=== PATIENT | female | born 1940 | race Caucasian/White ===

== ENCOUNTER 2016-08-19 07:07 | Day surgery (SDC) | payer MEDICARE ==
[~2016-08-19 07:07] MED LIST: Buffered Lidocaine 0.9% SYRIN* 5 ML/SYR SYRINGE INTRADERM ONE
[2016-08-19] MEDS ORDERED: Phenylephrine 2.5% OPTH.SOL* 2 ML BTL ONE (07:38)
[2016-08-19] MEDS ORDERED: acetaZOLAMIDE TAB* 250 MG ONE (07:38)
[2016-08-19] MEDS ORDERED: Lidocaine 1% MPF* 2 ML VIAL ONE (07:38)
[2016-08-19] MEDS ORDERED: Buffered Lidocaine 0.9% SYRIN* 5 ML/SYR SYRINGE ONE (07:38)
[2016-08-19] MEDS ORDERED: Flurbiprofen 0.03% OPTH.SOL* 2.5 ML BTL ONE (07:38)
[2016-08-19] MEDS ORDERED: Povidone Iodine 5% OPTH* 30 ML BTL ONE (07:38)
[2016-08-19] MEDS ORDERED: Cyclopentolate 1% OPTH.SOL* 2 ML BTL ONE (07:38)
[2016-08-19] MEDS ORDERED: Proparacaine 0.5% OPHTH.SOL* 15 ML BTL ONE (07:38)
[2016-08-19] MEDS ORDERED: Neomycin/Polymy/Dex OPTH.SUSP* MAXITROL 0.1% 5 ML ONE (07:38)
[2016-08-19] MEDS ORDERED: Lidocaine 1% MPF wEPI 200,000* 30 ML SDV ONE (07:38)
[2016-08-19] MEDS ORDERED: Propofol* 10 MG/ML 20 ML BTL IV PUSH ONE (09:20)
[2016-08-19] MEDS ORDERED: Lidocaine 2% PF * 5 ML VIAL ONE (09:20)
[2016-08-19 10:06] VITALS: BP 102/83
--- NOTE | 2016-08-19 11:11 | OP ---
DATE OF OPERATION: 08/19/2016 - [facility] DATE OF : 1940. SURGEON: Julián Kilgore M.D. PREOPERATIVE DIAGNOSIS: Cataract left eye. POSTOPERATIVE DIAGNOSIS: Cataract left eye. OPERATIVE PROCEDURE: Phacoemulsification left eye with IOL. DESCRIPTION OF PROCEDURE: The patient was brought to the operating room after being given 1/2% Alcaine with epinephrine drops in the preoperative area. The eye was prepped and draped in the usual sterile fashion. Sterile drape and eyelid speculum were placed. Again, topical 1/2% Alcaine with epinephrine was given. A paracentesis incision was made at the 3 o'clock position with the No.75 blade. Clear cornea incision 2.2 x 2.2-mm was created at the 6 o'clock position starting at the anterior limbus using the 2.2-mm keratome. The anterior chamber was irrigated with 0.4 mL of 1% non-preservative intracameral lidocaine and filled with DisCoVisc. A capsulorrhexis was completed using the cystotome and the Utrata forceps. Hydrodissection was performed with balanced salt solution. The lens nucleus was removed with the Phacoemulsification handpiece without incident. Cortex was removed with the irrigation-aspiration handpiece. The capsular bag was re-inflated using DisCoVisc and an SN60WF 28.5 implant was inserted with the shooter. The irrigation-aspiration handpiece was used to remove all residual DisCoVisc. The eye was refilled with balanced salt solution and the wound checked and found to be watertight. Topical Maxitrol drops were given. We were planning on doing an iStent. Two or three attempts were made to do the iStent, but there was too much patient movement and I was not able to safely place the stent. I decided to abort that portion of the procedure. [id number]/[facility] #: [id number] MTDD
== END 2016-08-19 10:06 | disposition home or self-care (01) ==
LOC: OREAST 07:07
PROVIDERS: ATTEND Specialist
DX: H25.13 Age-related nuclear cataract, bilateral (principal); H40.1131 Primary open-angle glaucoma, bilateral, mild stage; H53.022 Refractive amblyopia, left eye; H43.813 Vitreous degeneration, bilateral; I10 Essential (primary) hypertension; Z79.01 Long term (current) use of anticoagulants; I47.1 Supraventricular tachycardia
CPT/HCPCS: A9270-GY; J2001; J2704; V2632

== ENCOUNTER 2016-08-26 07:48 | Day surgery (SDC) | payer MEDICARE ==
[~2016-08-26 07:48] MED LIST changes: +Acetaminophen TAB* 325 MG PO PRN; -Buffered Lidocaine 0.9% SYRIN* 5 ML/SYR SYRINGE INTRADERM ONE
[2016-08-26] MEDS ORDERED: Proparacaine 0.5% OPHTH.SOL* 15 ML BTL ONE (08:12)
[2016-08-26] MEDS ORDERED: Povidone Iodine 5% OPTH* 30 ML BTL ONE (08:12)
[2016-08-26] MEDS ORDERED: Neomycin/Polymy/Dex OPTH.SUSP* MAXITROL 0.1% 5 ML ONE (08:12)
[2016-08-26] MEDS ORDERED: Lidocaine 1% MPF wEPI 200,000* 30 ML SDV ONE (08:12)
[2016-08-26] MEDS ORDERED: Buffered Lidocaine 0.9% SYRIN* 5 ML/SYR SYRINGE ONE (08:12)
[2016-08-26] MEDS ORDERED: Phenylephrine 2.5% OPTH.SOL* 2 ML BTL ONE (08:12)
[2016-08-26] MEDS ORDERED: Lidocaine 1% MPF* 2 ML VIAL ONE (08:12)
[2016-08-26] MEDS ORDERED: Flurbiprofen 0.03% OPTH.SOL* 2.5 ML BTL ONE (08:12)
[2016-08-26] MEDS ORDERED: Cyclopentolate 1% OPTH.SOL* 2 ML BTL ONE (08:12)
[2016-08-26] MEDS ORDERED: acetaZOLAMIDE TAB* 250 MG ONE (08:12)
[2016-08-26] MEDS ORDERED: Midazolam* 1 MG/ML 5 ML VIAL (5 MG) ONE (09:31)
[2016-08-26] MEDS ORDERED: fentaNYL* 50 MCG/ML 2 ML VIAL (100 MCG VIAL) ONE (09:55)
[2016-08-26] MEDS ORDERED: Midazolam* 1 MG/ML 2 ML VIAL (2 MG) ONE (09:57)
[2016-08-26 10:36] VITALS: BP 100/43
[2016-08-26] MEDS ORDERED: Buffered Lidocaine 0.9% SYRIN* 5 ML/SYR SYRINGE INTRADERM ONE (12:35)
--- NOTE | 2016-08-26 13:02 | OP ---
DATE OF OPERATION: 08/26/16 - [facility] DATE OF : [birth year] SURGEON: Julián Kilgore M.D. PREOPERATIVE DIAGNOSIS: Cataract right eye. POSTOPERATIVE DIAGNOSIS: Cataract right eye. OPERATIVE PROCEDURE: Phacoemulsification right eye with IOL. DESCRIPTION OF PROCEDURE: The patient was brought to the operating room after being given 1/2% Alcaine with epinephrine drops in the preoperative area. The eye was prepped and draped in the usual sterile fashion. Sterile drape and eyelid speculum were placed. Again, topical 1/2% Alcaine with epinephrine was given. A paracentesis incision was made at the 9 o'clock position with the No.75 blade. Clear cornea incision 2.2 x 2.2-mm was created at the 12 o'clock position starting at the anterior limbus using the 2.2-mm keratome. The anterior chamber was irrigated with 0.4 mL of 1% non-preservative intracameral lidocaine and filled with DisCoVisc. A capsulorrhexis was completed using the cystotome and the Utrata forceps. Hydrodissection was performed with balanced salt solution. The lens nucleus was removed with the Phacoemulsification handpiece without incident. Cortex was removed with the irrigation-aspiration handpiece. The capsular bag was re-inflated using DisCoVisc and an SN60WF 25 was inserted with the shooter. The irrigation-aspiration handpiece was used to remove all residual DisCoVisc. The eye was refilled with balanced salt solution and the wound checked and found to be watertight. Topical Maxitrol drops were given. [id number]/[facility] #: [id number] [facility]
== END 2016-08-26 10:58 | disposition home or self-care (01) ==
LOC: OREAST 07:48
PROVIDERS: ATTEND Specialist
DX: H25.11 Age-related nuclear cataract, right eye (principal); H40.1130 Primary open-angle glaucoma, bilateral, stage unspecified; I10 Essential (primary) hypertension; I47.1 Supraventricular tachycardia; Z79.01 Long term (current) use of anticoagulants
CPT/HCPCS: A9270-GY; J2001; J2250; J3010; V2632

== ENCOUNTER 2019-02-17 15:14 | Emergency (ER) | payer MEDICARE ==
--- OUTSIDE RECORDS SUMMARY | 2019-02-17 15:29 | XMS REPORT | Continuity of Care Document ---
:1940 External Reference #:[id number] Author Name Jericho Alonzo M.D. (transmitted by agent of provider Sabrina Carbajal ) Address [address] [place] [id number] Care Team Providers Name Role Phone Rafita Bourgeois MD - Family Medicine Care Team Information Supervisor Cloth Winding [phone] Problems Active Problems Provider Date Palpitations Jericho Alonzo M.D. Onset: 10/26/2012 Mitral valve disorder Jericho Alonzo M.D. Onset: 10/26/2012 Pure hypercholesterolemia Jericho Alonzo M.D. Onset: 10/26/2012 Supraventricular premature beats Jericho Alonzo M.D. Onset: 10/26/2012 Difficulty breathing KRYSTEN Gill Onset: 05/11/2013 Electrocardiogram abnormal KRYSTEN Gill Onset: 05/11/2013 Hypoxemia KRYSTEN Gill Onset: 05/11/2013 Essential hypertension Jericho Alonzo M.D. Onset: 07/12/2013 Paroxysmal supraventricular tachycardia Jericho Alonzo M.D. Onset: 07/12 Social History Type Date Description Comments Sex Unknown Tobacco Use Start: Unknown Never Smoked Cigarettes ETOH Use Denies alcohol use Tobacco Use Start: Unknown Patient has never smoked Recreational Drug Use Denies Drug Use Smoking Status Reviewed: 12/21/18 Patient has never smoked Enjoy Exercising Does not enjoy exercising Exercise Type/Frequency Exercises rarely Allergies, Adverse Reactions, Alerts Description No Known Drug Allergies Medications Active Medications SIG Qnty Indications Ordering Provider Date Amlodipine Besylate 1 by mouth every 30tabs R03.0 Jericho Marie 12/21/2018 Buddy Alonzo 2.5mg Tablets Timolol Maleate one drop in each Unknown 01/11/2017 0.5% eye daily at night Solution Oxygen 2 l nc at bedtime 1units R09.02 Jericho Marie 07/01/2015 [facility] Buddy Alonzo Xarelto 1 by mouth every 90tabs Alesia Menezes, JACOB 06/11/2015 20mg Tablets day Klor-Con M20 2 tablet by mouth 60tabs Qutaybeh S. 08/03/2013 20Meq daily Buddy Allen Tablets ER Magnesium 1 by mouth every Unknown 400mg day Tablets Vitamin D (Vitamin D3) 25mcg Unknown (Cholecalciferol) (1000Iu) 1 po bid 1000Unit Tablets Alendronate Sodium 1 by mouth weekly Unknown 1 hour before 70mg Tablets breakfast with a full glass of water sitting up (Wednesday) Immunizations Description No Information Available Vital Signs Date Vital Result Comment 12/21/2018 10:32am Height 65 inches 5'5" Weight 156.38 lb with shoes Heart Rate 64 /min BP Systolic Sitting 190 mmHg Lue (Regular cuff) BP Diastolic Sitting 94 mmHg Lue (Regular cuff) BP Systolic Standing 190 mmHg BP Diastolic Standing 90 mmHg BP Systolic Lying Down 164 mmHg la repeat sitting BP Diastolic Lying Down 84 mmHg la repeat sitting BMI (Body Mass Index) 26.0 kg/m2 Ejection Fraction 60-65% Echocardiogram 06/02/2018 06/07/2018 12:44pm Height 65 inches 5'5" Weight 150.00 lb w/shoes Heart Rate 68 /min reg BP Systolic Sitting 128 mmHg Rue reg cuff BP Diastolic Sitting 80 mmHg Rue reg cuff BP Systolic Standing 122 mmHg Rue reg cuff BP Diastolic Standing 74 mmHg Rue reg cuff Respiratory Rate 15 /min BMI (Body Mass Index) 25.0 kg/m2 Results Description No Information Available Procedures Date Code Description Status 12/21/2018 70015 EKG Tracing & Interpretation Completed 03/15/2018 [id number] Mammogram Completed 08/14/2016 [id number] Diabetic Retinal Eye Exam Completed Medical Devices Description No Information Available Encounters Description No Information Available Assessments Date Code Description Provider 12/21/2018 I47.1 Supraventricular tachycardia Jericho Alonzo M.D. 12/21/2018 I34.0 Nonrheumatic mitral (valve) insufficiency Jericho Alonzo M.D. 12/21/2018 G47.33 Obstructive sleep apnea (adult) Jericho Alonzo M.D. (pediatric) 12/21/2018 I48.0 Paroxysmal atrial fibrillation Jericho Alonzo M.D. 12/21/2018 R06.00 Dyspnea, unspecified Jericho Alonzo M.D. 12/21/2018 R07.89 Chest discomfort Jericho Alonzo M.D. 12/21/2018 R03.0 Elevated blood-pressure reading without Jericho Alonzo M.D. diagnosis of hypertension Plan of Treatment Future Appointment(s):01/06/2019 9:00 am - Lyssa Nowak N.P. at [facility]01/16/2019 10:15 am - Jericho Alonzo M.D. at [facility]12/21/2018 - Jericho Alonzo M.D.I47.1 Supraventricular nrvfhgzgncfW32.0 Nonrheumatic mitral (valve) uwzmavzkddxkxY09.33 Obstructive sleep apnea (adult) (pediatric)I48.0 Paroxysmal atrial fxhesnevrwnqN35.00 Dyspnea, unspecifiedNew Orders:Lexiscan Nuclear Myoview, Scheduled: R07.89 Chest lfrmcbeiieE10.0 Elevated blood-pressure reading without diagnosis of hypertensionNew Medication:Amlodipine Besylate 2.5 mg - 1 by mouth every dayNew Orders:Ambulatory Blood Pressure Monitor, Scheduled: Follow up:rafi Omalley in 2 weeks' ov [facility] 8 m Functional Status Description No Information Available Mental Status Description No Information Available Referrals Description No Information Available
--- OUTSIDE RECORDS SUMMARY | 2019-02-17 15:29 | XMS REPORT | Continuity of Care Document ---
:1940 External Reference #:[id number] Author Name Justina Rivas DNP, RN, CHILD AND ADOLESCENT PSYCHIATRIST-BC (transmitted by agent of provider Ana Reyna) Address [address], [address] [place] [id number] Care Team Providers Name Role Phone Rafita Bourgeois MD - Family Medicine Care Team Information Circulation Clerk Problems Active Problems Provider Date Palpitations Jericho [...] Use Denies Drug Use Smoking Status Reviewed: 01/31/19 Patient has never smoked Enjoy Exercising Does not enjoy exercising Exercise Type/Frequency Exercises rarely Allergies, Adverse Reactions, Alerts Description No Known Drug Allergies Medications Active Medications SIG Qnty Indications Ordering Provider Date Amlodipine Besylate 1 by mouth every 30tabs R03.0 Jericho Marie 12/21/2018 day Buddy Alonzo 2.5mg Tablets Timolol Maleate one drop in each Unknown 01/11/2017 0.5% eye daily at night Solution Oxygen 2 l nc at bedtime 1units R09.02 Jericho DickeyJosselyn 07/01/2015 [facility] Buddy Alonzo Xarelto 1 by mouth every [...] full glass of water sitting up (Wednesday) Medications Administered in Office Medication SIG Qnty Indications Ordering Provider Date Inj, Regadenoson, 0.1 MG Anurag Shukla, DO [facility] 01/16/2019 Injection Technetium TC 99M Anurag Shukla, DO [facility] 01/16/2019 Tetrofosmin, Per Unit Dose Up To 40 Millicuries Injection Technetium TC 99M Anurag Shukla, DO [facility] 01/16/2019 Tetrofosmin, Per Unit Dose Up To 40 Millicuries Injection Immunizations Description No Information Available Vital Signs Date Vital Result Comment 01/31/2019 1:48pm Height 65 inches 5'5" Weight 155.00 lb Heart Rate 80 /min BP Systolic 138 mmHg BP Diastolic 74 mmHg O2 % BldC Oximetry 98 % BMI (Body Mass Index) 25.8 kg/m2 01/06/2019 8:28am Height 65 inches 5'5" Weight 155.38 lb with shoe Heart Rate 72 /min BP Systolic Sitting 158 mmHg Rue (regular cuff) BP Diastolic Sitting 70 mmHg Rue (regular cuff) BP Systolic Standing 136 mmHg BP Diastolic Standing 68 mmHg BP Systolic Lying Down 142 mmHg Lue after resting BP Diastolic Lying Down 70 mmHg Lue after resting BMI (Body Mass Index) 25.9 kg/m2 Ejection Fraction 60-65% 06/02/2018 Echocardiogram Results Description No Information Available Procedures Date Code Description Status 01/16/2019 61299 Stress Test Completed 01/16/2019 86063 Myocardial Perfusion Imaging Tomographic (Spect) Completed Multiple Studies 12/21/2018 14908 EKG Tracing & Interpretation Completed 03/15/2018 [id number] Mammogram Completed 08/14/2016 [id number] Diabetic Retinal Eye Exam Completed Medical Devices Description No Information Available Encounters Type Date Location Provider Dx Diagnosis Office Visit 01/06/2019 [facility] Lyssa Nowak, I47.1 Supraventricular 9:00a N.P. tachycardia I34.0 Nonrheumatic mitral (valve) insufficiency G47.33 Obstructive sleep apnea (adult) (pediatric) I48.0 Paroxysmal atrial fibrillation R06.00 Dyspnea, unspecified I10 Essential (primary) hypertension Office Visit 12/21/2018 [place] Jericho Marie I47.1 Supraventricular 11:00a Cardiology Buddy Alonzo tachycardia I34.0 Nonrheumatic mitral (valve) insufficiency G47.33 Obstructive sleep apnea (adult) (pediatric) I48.0 Paroxysmal atrial fibrillation R06.00 Dyspnea, unspecified R07.89 Other chest pain R03.0 Elevated blood-pressure reading, w/o diagnosis of htn Assessments Date Code Description Provider 01/31/2019 G47.33 Obstructive sleep apnea (adult) Justina Rivas DNP, RN, (pediatric) [facility] 01/16/2019 R06.00 Dyspnea, unspecified Anurag Shukla DO [facility] 01/16/2019 I47.1 Supraventricular tachycardia Jericho Alonzo M.D. 01/16/2019 I34.0 Nonrheumatic mitral (valve) Jericho Alonzo M.D. insufficiency 01/16/2019 R07.89 Chest discomfort Jericho Alonzo M.D. 01/16/2019 R06.00 Dyspnea, unspecified Jericho Alonzo M.D. 01/06/2019 I47.1 Supraventricular tachycardia Lyssa Nowak, N.P. 01/06/2019 I34.0 Nonrheumatic mitral (valve) Lyssa Nowak, N.P. insufficiency 01/06/2019 G47.33 Obstructive sleep apnea (adult) Lyssa Nowak, N.P. (pediatric) 01/06/2019 I48.0 Paroxysmal atrial fibrillation Lyssa Nowak N.P. 01/06/2019 R06.00 Dyspnea, unspecified Lyssa Nowak N.P. 01/06/2019 I10 Essential (primary) hypertension Lyssa Nowak N.P. 12/21/2018 I47.1 Supraventricular tachycardia Jericho Alonzo M.D. 12/21/2018 I34.0 Nonrheumatic mitral (valve) Jericho Alonzo M.D. insufficiency 12/21/2018 G47.33 Obstructive sleep apnea (adult) Jericho Alonzo M.D. (pediatric) 12/21/2018 I48.0 Paroxysmal atrial fibrillation Jericho Alonzo M.D. 12/21/2018 R06.00 Dyspnea, unspecified Jericho Alonzo M.D. 12/21/2018 R07.89 Chest discomfort Jericho Alonzo M.D. 12/21/2018 R03.0 Elevated blood-pressure reading Jericho Alonzo M.D. without diagnosis of hypertension Plan of Treatment Future Appointment(s):08/01/2019 9:30 am - Justina Rivas DNP, RN, TAVON- at [facility]08/10/2019 1:40 pm - Jericho Alonzo M.D. at [facility]01/31/2019 - Justina Rivas DNP, RN, TAVON- BCG47.33 Obstructive sleep apnea (adult) (pediatric)Comments:10/16/16 and was diagnosed with moderate sleep apnea- AHI-26.5, O2 irene 83%. On CPAP auto AHI 3.2/hour, normalFollow up:6 monthsRecommendations:Continue PAP device, Benefitting and compliant with treatment. Cleaning Wipe off mask daily (baby wipe-no scent, or warm water) Clean mask, tubing, filter, and water chamber weekly in mild no scent dish soap and water. Hang to dry. If you have any sleepiness while driving you MUST avoid operating a vehicle or machinery. If you have difficulty with your equipment, or need to replace your mask or hoses, please contact your homecare agency. A weight change of 20 pounds or more may have an effect onyour equipment; if you are experiencing problems please call for an appointment. If you have any further questions, please call the [facility] at [phone]. Functional Status Description No Information Available Mental Status Description No Information Available Referrals Description No Information Available
--- OUTSIDE RECORDS SUMMARY | 2019-02-17 15:29 | XMS REPORT | Continuity of Care Document ---
:1940 External Reference #:[id number] Author Name Lyssa Nowak N.P. (transmitted by agent of provider Laly Tijerina) Address 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 Problems Active Problems Provider Date Palpitations Jericho [...] Use Denies Drug Use Smoking Status Reviewed: 01/06/19 Patient has never smoked Enjoy Exercising Does [...] at bedtime 1units R09.02 Jericho DickeyJosselyn 07/01/2015 [facility] Buddy Alonzo Xarelto 1 by mouth every [...] Available Vital Signs Date Vital Result Comment 01/06/2019 8:28am Height 65 inches 5'5" Weight [...] 25.9 kg/m2 Ejection Fraction 60-65% 06/02/2018 Echocardiogram 12/21/2018 10:32am Height 65 inches 5'5" Weight [...] 26.0 kg/m2 Ejection Fraction 60-65% Echocardiogram 06/02/2018 Results Description No Information Available Procedures Date Code Description Status 12/21/2018 18706 EKG Tracing & Interpretation Completed 03/15/2018 [id number] Mammogram Completed 08/14/2016 [id number] Diabetic Retinal Eye Exam Completed Medical Devices Description No Information Available Encounters Type Date Location Provider Dx Diagnosis Office Visit 01/06/2019 [facility] Lyssa Nowak, I47.1 Supraventricular 9:00a N.P. tachycardia I34.0 Nonrheumatic mitral (valve) insufficiency G47.33 Obstructive sleep apnea (adult) (pediatric) I48.0 Paroxysmal atrial fibrillation R06.00 Dyspnea, unspecified I10 Essential (primary) hypertension Office Visit 12/21/2018 [place] Jericho Marie I47.1 Supraventricular 11:00a Cardiology Buddy Alonzo tachycardia I34.0 Nonrheumatic mitral (valve) insufficiency G47.33 Obstructive sleep apnea (adult) (pediatric) I48.0 Paroxysmal atrial fibrillation R06.00 Dyspnea, unspecified R07.89 Other chest pain R03.0 Elevated blood-pressure reading, w/o diagnosis of htn Assessments Date Code Description Provider 01/06/2019 I47.1 Supraventricular tachycardia Lyssa S. Eliu, N.P. 01/06/2019 I34.0 Nonrheumatic mitral (valve) insufficiency Lyssa S. Eliu, N.P. 01/06/2019 G47.33 Obstructive sleep apnea (adult) Lyssa S. Foster, N.P. (pediatric) 01/06/2019 I48.0 Paroxysmal atrial fibrillation Lyssa S. Foster, N.P. 01/06/2019 R06.00 Dyspnea, unspecified Lyssa S. Foster, N.P. 01/06/2019 I10 Essential (primary) hypertension Lyssa S. Eliu, N.P. 12/21/2018 I47.1 Supraventricular tachycardia Jericho Alonzo [...] diagnosis of hypertension Plan of Treatment Future Appointment(s):08/10/2019 1:40 pm - Jericho Alonzo M.D. at [facility]01/16/2019 10:15 am - Jericho Alonzo M.D. at [facility]01/06/2019 - Lyssa Nowak N.P.I47.1 Supraventricular vuehwicbvggX88.0 Nonrheumatic mitral (valve) zwwkzduheobrfL97.33 Obstructive sleep apnea (adult) (pediatric)Recommendations:I am going to have the sleep clinic call you for an office visit to have your machine checked out and make sure that it is working appropriately.I48.0 Paroxysmal atrial rtkixrjabwacP51.00 Dyspnea, rgdncuieruvO94 Essential (primary) hypertensionFollow up:01/16 stress test at [facility] 07/2018 amb BP monitor in February.Recommendations:BP controlled. Functional Status Description No Information Available Mental Status Description No Information Available Referrals Description No Information Available
--- OUTSIDE RECORDS SUMMARY | 2019-02-17 15:29 | XMS REPORT | Continuity of Care Document ---
:1940 External Reference #:[id number] Author Name Julián Kilgore M.D. Address [address] [place] [address] Care Team Providers Name Role Phone Rafita Bourgeois M.D. - Internal Care Team Information Turret Lathe Operator Medicine Jericho Alonzo MD - Cardiovascular Care Team Information Turret Lathe Operator [phone] Disease Andrew Landry M.D. - Urology Care Team Information Turret Lathe Operator [phone] Problems Active Problems Provider Date Vertigo Onset: Essential hypertension Onset: Osteopenia Onset: Anxiety Onset: Polyp Onset: Goiter Onset: Atrial paroxysmal tachycardia Onset: Hip pain Onset: Excessive cerumen in ear canal Onset: Lyme disease Onset: Primary open angle glaucoma Julián Kilgore M.D. Onset: 08/10/2014 Mild / Early Stage Glaucoma Julián Kilgore M.D. Onset: 08/10/2014 Nuclear senile cataract Julián Kilgore M.D. Onset: 08/10/2014 Amblyopia Julián Kilgore M.D. Onset: 08/10/2014 Combined form of senile cataract Julián Kilgore M.D. Onset: 12/10/2014 Refractive amblyopia Julián Kilgore M.D. Onset: 01/09/2016 Bilateral primary open angle glaucoma Julián Kilgore M.D. Onset: 01/09/2016 Bilateral primary open angle glaucoma Julián Kilgore M.D. Onset: 07/09/2016 Vitreous degeneration Julián Kilgore M.D. Onset: 07/09/2016 Presence of intraocular lens Julián Kilgore M.D. Onset: 08/27/2016 Myogenic ptosis Julián Kilgore M.D. Onset: 06/30/2018 Social History Type Date Description Comments Sex Unknown ETOH Use Denies alcohol use Tobacco Use Start: Unknown Patient has never smoked Smoking Status Reviewed: 01/05/19 Patient has never smoked Allergies, Adverse Reactions, Alerts Description No Known Drug Allergies Medications Active Medications SIG Qnty Indications Ordering Provider Date Timolol Maleate 1 drop both eyes 15ml Julián Kilgore, 06/26/2014 Ophthalmic Gel Forming every night M.DJosselyn 0.5% GFS Xarelto take 1 tablet Unknown 20mg Tablets once daily Magnesium Unknown 400mg Tablets Prevident 5000 Dry Unknown Mouth 1.1% Gel Alendronate Sodium Unknown 70mg Tablets Amlodipine Besylate Take 1 Tablet By Unknown 2.5mg Mouth Once Daily Tablets B Complex Unknown Tablets Vitamin D every day Unknown 1000Unit Tablets Potassium Chloride Unknown Quynh ER 20Meq Tablets ER Immunizations Description No Information Available Vital Signs Description No Information Available Results Description No Information Available Procedures Description No Information Available Medical Devices Description No Information Available Encounters Description No Information Available Assessments Date Code Description Provider 01/05/2019 H40.1131 Primary open-angle glaucoma, bilateral, Julián Kilgore M.D. mild stage 01/05/2019 Z96.1 Presence of intraocular lens Julián Kilgore M.D. 01/05/2019 H53.022 Refractive amblyopia, left eye Julián Kilgore M.D. 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 Plan of Treatment 01/05/2019 - Julián Kilgore M.D.H40.1131 Primary open-angle glaucoma, bilateral, mild stageComments:Smoking can increase the risk of developing or worsening any eye related disease, as well as affect your overall health. If you are a smoker, we strongly recommend that you quit.If you are not a smoker, we strongly recommend that you do not start. Your glaucoma is stable at this time.Your eye pressure is within an acceptable range, and your testing does not show any further deterioration at this time. Please continue your treatment.Follow up:6 Month Follow Up DFE/IOP OCT ON Visual Field 30-2 You can expect to have your eyes dilated at yournext visit. If Dr. Kilgore orders any additional testing, it may require extra time. We recommend thatyou bring sunglasses, as dilation drops often make you light sensitive until they wear off. We always recommend you bring someone to drive you home if you are uncomfortable driving with your eyes dilated. If you have any questions before your next visit, feel free to call our office at .[email or web address]. Presence of intraocular lensComments:The artificial lens implants in both eyes appear to be stable at this time.H53.022 Refractive amblyopia, left eyeComments:You have Amblyopia in your left eye. You have never been able to see perfectly out of this eye.H02.423 Myogenic ptosis of bilateral eyelidsComments:You have ptosis, which is drooping of your eyelids. If you are bothered by it, we can refer you to have it repaired. Functional Status Description No Information Available Mental Status Description No Information Available Referrals Description No Information Available
[2019-02-17] MEDS ORDERED: Bupivacaine 0.25% SDV* 30 ML INJ ONE (16:31)
[2019-02-17] MEDS ORDERED: Lidocaine 1% MPF* 2 ML VIAL INJ ONE (16:31)
[2019-02-17] MEDS ORDERED: traMADol TAB* 50 MG PO ONE (16:31)
--- NOTE | 2019-02-17 16:52 | ED ---
Upper Extremity Pain - HPI Summary HPI Summary: This patient is an 78-year-old otherwise healthy female who presents to the ED with right distal radial fracture. [facility] is coming [facility]. She states she had a mechanical fall this morning, falling on an outstretched arm. Per [facility], there is a comminuted fracture through the distal radial metaphysis with dorsal displacement and volar angulation of the fracture fragments. Minimally displaced fracture through the medial aspect of the ulnar styloid. Carpal bones are intact. She was sent here for further evaluation and for orthopedic referral. She was given Tylenol while at [facility], which improved her symptoms. She is currently complaining of a 1/10 pain. She denies any numbness or tingling to the hand or to the wrist. She denies any color or temperature changes. She states she did not incur any other injuries during her fall. - History of Current Complaint Chief Complaint: EDExtremityUpper Stated Complaint: RT WRIST INJURY PER PT Time Seen by Provider: 02/17/19 15:28 Hx Obtained From: Patient Onset/Duration: Started Hours Ago Timing: Constant, Lasting Days Severity Initially: Moderate Severity Currently: Moderate Pain Location: Wrist Character: Aching Alleviating Factor(s): Nothing Associated Signs & Symptoms: Negative: Swelling, Redness, Bruising, Weakness, Numbness/Tingling, Nausea, Vomiting - Risk Factors Non-Orthopedic Risk Factor: Negative DVT Risk Factors: Negative Septic Arthritis Risk Factor: Negative Compartment Syndrome Risk Factors: Pain - Allergies/Home Medications Allergies/Adverse Reactions: Allergies Allergy/AdvReac Type Severity Reaction Status Date / Time No Known Allergies Allergy Verified 02/17/19 15:18 Home Medications: Home Medications amLODIPine TAB* [Norvasc 5 mg TAB*] 2.5 mg PO DAILY 02/17/19 [History Confirmed 02/17/19] PMH/Surg Hx/FS Hx/Imm Hx Previously Healthy: Yes Endocrine/Hematology History: Denies: Hx Diabetes Cardiovascular History: Reports: Hx Angina, Hx Hypercholesterolemia, Hx Hypertension, Hx Valvular Heart Disease - mitral valve disorder, Other Cardiovascular Problems/Disorders - MITRAL VALVE PROBLEM/ANGINA Respiratory History: Reports: Hx Sleep Apnea - evaluation for 05/2013 Denies: Hx Asthma, Hx Chronic Obstructive Pulmonary Disease (COPD), Other Respiratory Problems/Disorders GI History: Denies: Other GI Disorders Musculoskeletal History: Reports: Hx Arthritis - fingers Denies: Hx Osteoporosis, Other Musculoskeletal History Sensory History: Reports: Hx Cataracts - malena, Hx Contacts or Glasses - glasses, Hx Glaucoma Denies: Hx Hearing Aid Opthamlomology History: Reports: Hx Cataracts - malena, Hx Contacts or Glasses - glasses, Hx Glaucoma Neurological History: Denies: Other Neuro Impairments/Disorders Psychiatric History: Reports: Hx Anxiety - meds - Cancer History Hx Chemotherapy: No Hx Radiation Therapy: No - Surgical History Surgery Procedure, Year, and Place: tonsils, 2007- hysterectomy, 2008- (right) breast cyst Hx Anesthesia Reactions: No - Immunization History Date of Influenza Vaccine: 2019 Infectious Disease History: No Infectious Disease History: Denies: Traveled Outside the [place] in Last 30 Days - Social History Occupation: Unemployed Lives: With Family Alcohol Use: None Hx Substance Use: No Substance Use Type: Reports: None Hx Tobacco Use: No Smoking Status (MU): Never Smoked Tobacco Have You Smoked in the Last Year: No Review of Systems Negative: Fever, Chills, Fatigue, Skin Diaphoresis Negative: Palpitations, Chest Pain Genitourinary: Negative Positive: see HPI. Negative: no symptoms reported Positive: Other - right wrist pain - volar surface. Negative: Arthralgia, Myalgia Negative: Rash, Bruising Neurological: Negative All Other Systems Reviewed And Are Negative: Yes Physical Exam Triage Information Reviewed: Yes Vital Signs On Initial Exam: Initial Vitals Temp Pulse Resp BP Pulse Ox 97.9 F 85 15 149/72 100 02/17/19 15:15 02/17/19 15:15 02/17/19 15:15 02/17/19 15:15 02/17/19 15:15 Vital Signs Reviewed: Yes Appearance: Positive: Well-Appearing, Well-Nourished Skin: Positive: Warm, Skin Color Reflects Adequate Perfusion Head/Face: Positive: Normal Head/Face Inspection Eyes: Positive: EOMI, JORGE ALBERTO, Conjunctiva Clear Neck: Positive: Supple Respiratory/Lung Sounds: Positive: Clear to Auscultation Cardiovascular: Positive: RRR Musculoskeletal: Positive: Pain @ - volar wrist pain Neurological: Positive: Speech Normal Psychiatric: Positive: Affect/Mood Appropriate AVPU Assessment: Alert Procedures - Sedation Patient Received Moderate/Deep Sedation with Procedure: No Diagnostics - Vital Signs Vital Signs Temp Pulse Resp BP Pulse Ox 02/17/19 15:15 97.9 F 85 15 149/72 100 - Laboratory Lab Statement: Any lab studies that have been ordered have been reviewed, and results considered in the medical decision making process. Course/Dx - Course Course Of Treatment: X-ray was not able to be obtained through [facility]. [place] [facility] [place] Discussed case with Dr. Blackburn, orthopedics recommends reduction with splint. Hematoma block using combination of 10 mL bupivacaine and lidocaine. This with good effect. Attempted reduction. Sugar tong plaster splint placed while patient still in traction. No post reduction xrays obtained. Pt stated she would not be able to tolerate another attempt at reduction if radius continues to be displaced. Will have pt follow up with hand ortho early next week. Sling given. - Diagnoses Differential Diagnosis/HQI/PQRI: Positive: Other - displaced fracture, comminuted impacted fx Provider Diagnoses: Radial fracture Discharge ED - Sign-Out/Discharge Documenting (check all that apply): Patient Departure - Discharge Plan Condition: Stable Disposition: HOME Patient Education Materials: Wrist Fracture in Adults (ED) Referrals: Rafita Bourgeois MD [Primary Care Provider] - Blanca Blackburn MD [Medical Doctor] - Additional Instructions: Call office first thing Wednesday morning to get an appt with orthopedics Keep in sling for comfort Do not get splint wet Ibuprofen 600mg three times daily for pain and inflammation you may alternate with tylenol - Billing Disposition and Condition Condition: STABLE Disposition: Home
[2019-02-17] MEDS ORDERED: Lidocaine 1% INJ* 10 MG/ML 30 ML SDV ONE (17:03)
[2019-02-17 17:38] VITALS: BP 145/74
== END 2019-02-17 17:37 | disposition home or self-care (01) ==
LOC: ED 15:14
DX: S52.501A Unspecified fracture of the lower end of right radius, initial encounter for closed fracture (principal); S52.611A Displaced fracture of right ulna styloid process, initial encounter for closed fracture; W19.XXXA Unspecified fall, initial encounter; Y92.9 Unspecified place or not applicable; E78.00 Pure hypercholesterolemia, unspecified; I10 Essential (primary) hypertension; F41.9 Anxiety disorder, unspecified; Z79.899 Other long term (current) drug therapy; Z90.710 Acquired absence of both cervix and uterus
CPT/HCPCS: 99282; A9270-GY; J3490

== ENCOUNTER 2019-02-21 07:36 | Day surgery (SDC) | payer MEDICARE ==
--- NOTE | 2019-02-20 12:43 | HP ---
HISTORY AND PHYSICAL: DATE OF ADMISSION: 02/21/19 ATTENDING PHYSICIAN: Dr. Blanca Blackburn* (dictated by KRYSTEN Chavez). PROCEDURE: Right wrist open reduction internal fixation. CHIEF COMPLAINT: Right wrist fracture. HISTORY OF PRESENT ILLNESS: Cynthia is an 78-year-old right-hand dominant female who complains of a 3 day history of right wrist pain, it started when she fell landing on to an outstretched right hand. She was seen at emergency room at [facility], where x-rays were obtained which did reveal a fracture, and attempted closed reduction was done and she has been in a splint and referred for orthopedic evaluation. She states that Tylenol has relieved her pain. She rates her pain as 5/10. She denies any numbness or tingling. She has failed conservative treatment and elected to proceed with surgery. She is scheduled for right wrist open reduction and internal fixation with Dr. Blackburn on 02/21/19. PAST MEDICAL HISTORY: 1. High blood pressure. 2. Arthritis. 3. Anxiety. PAST SURGICAL HISTORY: Ovary surgery and tonsillectomy. MEDICATIONS: 1. Alendronate sodium. 2. Amlodipine. 3. Klor-Con 20 mEq. 4. Magnesium 400 mg. 5. Oxygen 2 L nasal cannula at bed time. 6. Timolol maleate. 7. Vitamin D. 8. Xarelto. ALLERGIES: No known drug allergies. FAMILY HISTORY: Diabetes and cancer. SOCIAL HISTORY: She lives alone. She does not currently work. She denies tobacco, alcohol or recreational drug use. REVIEW OF SYSTEMS: A complete 14-point review of systems was obtained other than HPI was negative and noncontributory including negative for prior problems with anesthesia. PHYSICAL EXAMINATION GENERAL: Awake, alert and oriented, in no acute distress. HEENT: Head is normocephalic, atraumatic. NECK: Supple with no palpable lymph nodes. LUNGS: Clear to auscultation bilaterally. No wheezes, rales or rhonchi. CARDIAC: Regular rate and rhythm. S1, S2. No murmurs, rubs or gallops. MUSCULOSKELETAL: Right upper extremity: There is a swelling around the fingers and hands. She has been splinted. The splint is intact and clean and dry. She has full range of motion of her fingers. Sensation is intact to light touch distally. 2+ radial pulse. SKIN: Intact without rashes or lesions. DIAGNOSTIC STUDIES/LAB DATA: X-rays taken today of the right wrist two views showed displaced intraarticular distal radius fracture. IMPRESSION: Right distal radius intraarticular fracture. PLAN: She is scheduled to undergo right wrist open reduction and internal fixation with Dr. Blackburn on 02/21/19. She will follow up in the office 10 to 14 days postoperatively. KRYSTEN CHAVEZ [id number]/[facility] #: [id number] MTDD
[2019-02-21] MEDS ORDERED: ceFAZolin 2 GM PREMIX in ORs 2 GM/50 ML BAG ONE (08:24)
[2019-02-21] MEDS ORDERED: fentaNYL* 50 MCG/ML 2 ML VIAL (100 MCG VIAL) ONE ×2 (08:28→10:37)
[2019-02-21] MEDS ORDERED: Midazolam* 1 MG/ML 2 ML VIAL (2 MG) ONE (08:28)
[2019-02-21] MEDS ORDERED: Propofol* 10 MG/ML 20 ML BTL ONE ×2 (09:42→09:43)
[2019-02-21] MEDS ORDERED: Lidocaine 2% PF * 5 ML VIAL ONE (09:43)
[2019-02-21] MEDS ORDERED: Bupivacaine 0.5% SDV PF* 30ML VIAL ONE (09:45)
[2019-02-21] MEDS ORDERED: Ketorolac INJ* 30 MG/ML 1 ML VIAL ONE (09:46)
[2019-02-21] MEDS ORDERED: Dexamethasone IV* 4 MG/ML 1 ML (4 MG) ONE (09:46)
[2019-02-21] MEDS ORDERED: Ondansetron INJ* 2 MG/ML VIAL ONE (09:46)
[2019-02-21] MEDS ORDERED: KETAMINE HCL* 50 MG/ML 10 ML VIAL ONE (09:46)
[2019-02-21] MEDS ORDERED: Famotidine IV* 10 MG/ML 2 ML (20 mg) ONE (09:50)
[2019-02-21] MEDS ORDERED: Naloxone* 0.4 MG/ML 1 ML VIAL IV PRN (11:05)
[2019-02-21] MEDS ORDERED: DiMENhydriNATE IV* 50 MG/ML VIAL IV PUSH PRN (11:05)
[2019-02-21] MEDS ORDERED: fentaNYL* 50 MCG/ML 2 ML VIAL (100 MCG VIAL) IV PRN (11:05)
[2019-02-21] MEDS ORDERED: HYDROcodone/ACETAMIN 5-325 MG* 1 TAB ONE (11:18)
[2019-02-21] MEDS ORDERED: Acetaminophen TAB* 325 MG ONE (11:19)
[2019-02-21] MEDS ORDERED: DiMENhydriNATE IV* 50 MG/ML VIAL ONE (11:23)
[2019-02-21 12:33] VITALS: BP 138/68
--- NOTE | 2019-02-22 00:18 | OP ---
CC: Dr. Blackburn OPERATIVE REPORT: DATE OF OPERATION: 02/21/19 DATE OF : 36 SURGEON: Blanca Blackburn MD. [employer] BILINGUAL: KRYSTEN Serrano. ANESTHESIA: General. PRE-OP DIAGNOSIS: Distal radius fracture on the right. POST-OP DIAGNOSIS: Distal radius fracture on the right. OPERATIVE PROCEDURE: Open reduction and internal fixation of right distal radius. ESTIMATED BLOOD LOSS: Zero. TOURNIQUET TIME: About 30 minutes. INDICATIONS FOR PROCEDURE: Cynthia is an 78-year-old female who fell and injured her right wrist. Ingrid sood suffered a fracture and had reduction but the reduction is less than anatomic. She presented for O RIF of distal radius on the right. DESCRIPTION OF PROCEDURE: The patient was brought to the operating room, was given a general anesthe tic, and placed in a supine position on the operating table with a tourniquet around her right upper arm. The skin of her right upper extremity was prepped and draped in the usual sterile fashion. The upper extremity was exsanguinated and the tourniquet elevated to 250 mmHg. A longitudinal incision was made over the FCR tendon. We dissected sharply through the superficial and deep portion of the F CR tendon sheath. The FPL muscle and tendon were then retracted ulnarily. The pronator quadratus wa s incised and subperiosteally dissected off of the distal radius. The fracture fragments were then r educed and their position checked on the C-arm and found to be anatomic. A 3-hole plate from the dis bernard radius Synthes set was secured with 5 distal and 3 proximal screws. The position of the hardware and fracture fragments were checked on the C-arm in the AP and lateral views and found to be satisfa ctory. The wound was irrigated copiously with saline. The pronator quadratus was repaired over the plate with 2-0 Vicryl suture. The FCR tendon sheath was repaired with 2-0 Vicryl suture and the skin edges were reapproximated with 4-0 nylon suture. The wound was dressed with Xeroform, 4x4, Webril, a nd a volar splint. The patient tolerated the procedure well and was brought to the recovery room in good condition. [id number]/[facility] #: [id number]
== END 2019-02-21 12:33 | disposition home or self-care (01) ==
LOC: OREAST 07:36
PROVIDERS: ATTEND Orthopaedic Surgery
DX: S52.571A Other intraarticular fracture of lower end of right radius, initial encounter for closed fracture (principal); W19.XXXA Unspecified fall, initial encounter; Y92.9 Unspecified place or not applicable; I47.1 Supraventricular tachycardia; G47.33 Obstructive sleep apnea (adult) (pediatric); I10 Essential (primary) hypertension; I25.10 Atherosclerotic heart disease of native coronary artery without angina pectoris; Z99.81 Dependence on supplemental oxygen; Z79.01 Long term (current) use of anticoagulants; M19.90 Unspecified osteoarthritis, unspecified site; I34.8 Other nonrheumatic mitral valve disorders
CPT/HCPCS: 76000; A9270-GY; C1713; C1776; J0690; J1100; J1240; J1885; J2250; J2405; J2704; J3010; J3490

== ENCOUNTER 2020-09-25 10:11 | Inpatient (IN) ==
[2020-09-25] MEDS ORDERED: NS 0.9% 1000 ml BAG 1,000 ML IV ONE (10:54)
[2020-09-25] MEDS ORDERED: Piperacillin/Tazobac ADVAN 3.375 GM in NS 0.9% 100 ml BAG 100 ML IVPB ONE (11:07)
[2020-09-25] MEDS ORDERED: NS 0.9% 1000 ml BAG 2,000 ML IV ONE (11:08)
[2020-09-25 11:28] LABS: ALT 40 U/L (7-52); Albumin 3.8 g/dL (3.2-5.2); Albumin/Globulin Ratio 1.4 (1-3); Alkaline Phosphatase 176 U/L (35-149); Blood Urea Nitrogen 16 mg/dL (6-24); C Reactive Protein 214.04 mg/L (<8.01); CO2 Carbon Dioxide 23 mmol/L (22-32); Chloride 88 mmol/L (101-111); Creatine Kinase 679 U/L (10-223); EGFR African American 81.9 (>60); EGFR Non-African American 67.7 (>60); Globulin 2.8 g/dL (2-4); Glucose 94 mg/dL (70-100); Magnesium 1.9 mg/dL (1.9-2.7); Sodium 121 mmol/L (135-145); Total Protein 6.6 g/dL (6.4-8.9)
[2020-09-25 11:34] LABS: Troponin I 0.04 ng/mL (<0.03)
[2020-09-25 11:36] LABS: Hematocrit 35 % (35-47); Hemoglobin 11.8 g/dL (12.0-16.0); Mean Corpuscular HGB Conc 34 g/dL (31-36); Mean Corpuscular Hemoglobin 31 pg (27-31); Mean Corpuscular Volume 90 fL (80-97); Red Blood Count 3.86 10^6 /uL (3.70-4.87); Red Cell Distribution Width 14 % (10-15)
[2020-09-25 11:39] LABS: Activated Partial Thrombo Time 34.7 seconds (26.0-38.0); INR 1.33 (0.86-1.15)
[2020-09-25] MEDS ORDERED: Iohexol 300 (CONTRAST) 10 ML SDV IV ONE (11:48)
[2020-09-25 11:51] LABS: Urine Appearance Cloudy; Urine Bilirubin Negative (Negative); Urine Blood 2+ (Negative); Urine Color Yellow; Urine Glucose Negative (Negative); Urine Ketones 1+ (Negative); Urine Nitrite Negative (Negative); Urine Protein 2+(100 mg/dL) (Negative); Urine Specific Gravity 1.015 (1.002-1.030); Urine Urobilinogen Negative (Negative)
[2020-09-25 12:00] LABS: AST 86 U/L (13-39); Anion Gap 10 mmol/L (2-11)
[2020-09-25 12:08] LABS: ABS Lymphocytes 0.2 10^3/ul (1.0-4.8); ABS Monocytes 0.1 10^3/ul (0-0.8); ABS Neutrophils 1.6 10^3/ul (1.5-7.7); Lymphocyte % 11.7 %; Nucleated Red Blood Cells % 0.2
[2020-09-25 12:16] LABS: Urine Bacteria Absent (Absent); Urine Granular Casts Present (Absent); Urine Red Blood Cell Trace(0-2/hpf) (Absent); Urine White Blood Cell Trace(0-5/hpf) (Absent)
[2020-09-25 12:42] LABS: Mean Platelet Volume 10.9 fL (7.4-10.4); Platelet Count 54 10^3/uL (150-450)
[2020-09-25] MEDS ORDERED: NS 0.9% 1000 ml BAG 1,000 ML IV SCH ×2 (14:45→17:56)
[2020-09-25 17:09] LABS: Anion Gap 10 mmol/L (2-11); Blood Urea Nitrogen 15 mg/dL (6-24); CO2 Carbon Dioxide 19 mmol/L (22-32); Calcium 6.9 mg/dL (8.6-10.3); Chloride 98 mmol/L (101-111); EGFR African American 86.8 (>60); EGFR Non-African American 71.8 (>60); Glucose 91 mg/dL (70-100); Potassium 3.5 mmol/L (3.5-5.0); Sodium 127 mmol/L (135-145)
[2020-09-25 17:10] LABS: Troponin I 0.08 ng/mL (<0.03)
[2020-09-25 17:40] LABS: RBC Parasite Smear No Parasites Seen (No Parasite)
[2020-09-25 17:48] LABS: TSH Ultra Thyroid Stim Horm 0.42 mcIU/mL (0.34-5.60)
[2020-09-25 19:28] LABS: Troponin I 0.35 ng/mL (<0.03)
[2020-09-25] MEDS: cefTRIAXone 1 gm/50 mL NS BAG 1 GM/50 ML BAG IVPB SCH (19:44)
[2020-09-25] MEDS: DOXYcycline 100 MG in NS 0.9% 250 ml 250 ML IVPB SCH (21:17)
[2020-09-25 22:54] LABS: Calcium 6.7 mg/dL (8.6-10.3); EGFR African American 86.8 (>60); EGFR Non-African American 71.8 (>60); Potassium 3.4 mmol/L (3.5-5.0)
[2020-09-25 23:01] LABS: Troponin I 0.66 ng/mL (<0.03)
[2020-09-25] MEDS: Timolol 0.5% OPTH.SOL BTL BOTH EYES SCH (23:18)
[2020-09-26 06:37] LABS: Hematocrit 27 % (35-47); Hemoglobin 9.5 g/dL (12.0-16.0); Mean Corpuscular HGB Conc 35 g/dL (31-36); Mean Corpuscular Hemoglobin 31 pg (27-31); Mean Corpuscular Volume 88 fL (80-97); Mean Platelet Volume 9.4 fL (7.4-10.4); Platelet Count 29 10^3/uL (150-450); Red Blood Count 3.07 10^6 /uL (3.70-4.87); Red Cell Distribution Width 14 % (10-15); White Blood Count 1.4 10^3/uL (3.5-10.8)
[2020-09-26 06:44] LABS: ABS Neutrophils 0.9 10^3/ul (1.5-7.7)
[2020-09-26 06:45] LABS: Anion Gap 9 mmol/L (2-11); Blood Urea Nitrogen 19 mg/dL (6-24); CO2 Carbon Dioxide 19 mmol/L (22-32); Calcium 6.8 mg/dL (8.6-10.3); Chloride 101 mmol/L (101-111); EGFR African American 84.3 (>60); EGFR Non-African American 69.7 (>60); Glucose 80 mg/dL (70-100); Potassium 3.5 mmol/L (3.5-5.0); Sodium 129 mmol/L (135-145)
[2020-09-26 07:05] LABS: Troponin I 0.42 ng/mL (<0.03)
[2020-09-26 07:25] LABS: ABS Lymphocytes 0.3 10^3/ul (1.0-4.8); ABS Monocytes 0.1 10^3/ul (0-0.8); Lymphocyte % 22.2 %; Nucleated Red Blood Cells % 0.5
[2020-09-26] MEDS: DOXYcycline 100 MG in NS 0.9% 250 ml 250 ML IVPB SCH (08:11)
[2020-09-26] MEDS: Timolol 0.5% OPTH.SOL BTL BOTH EYES SCH ×2 (08:11→19:48)
[2020-09-26] MEDS ORDERED: Potassium Chlor 20 meq TAB.ER PO ONE (09:14)
[2020-09-26] MEDS ORDERED: CALCIUM GLUCONATE 1GM/50ML NS 1 GM/50 ML BAG IV ONE (09:30)
[2020-09-26 12:18] LABS: Albumin/Globulin Ratio 1.2 (1-3); Direct Bilirubin 0.3 mg/dL (0.03-0.18); Globulin 2.5 g/dL (2-4); Indirect Bilirubin 0.5 mg/dL (0.3-1.0); Total Bilirubin 0.8 mg/dL (0.2-1.0); Total Protein 5.5 g/dL (6.4-8.9)
[2020-09-26 12:23] LABS: Troponin I 0.32 ng/mL (<0.03)
[2020-09-26] MEDS ORDERED: NS 0.9% 500 ml BAG 500 ML IV ONE (13:20)
[2020-09-26] MEDS ORDERED: NS 0.9% 1000 ml BAG 1,000 ML IV SCH (17:00)
[2020-09-26] MEDS ORDERED: Calcium Gluconate 2 GM in NS 0.9% 100 ml BAG 100 ML IV ONE (17:28)
[2020-09-26] MEDS: cefTRIAXone 1 gm/50 mL NS BAG 1 GM/50 ML BAG IVPB SCH (20:28)
[2020-09-27 06:10] LABS: Calcium 7.7 mg/dL (8.6-10.3); Potassium 3.7 mmol/L (3.5-5.0)
[2020-09-27 06:15] LABS: EGFR African American 111.5 (>60); EGFR Non-African American 92.2 (>60)
[2020-09-27 06:25] LABS: ABS Monocytes 0.3 10^3/ul (0-0.8); ABS Neutrophils 1.8 10^3/ul (1.5-7.7); Hematocrit 30 % (35-47); Hemoglobin 10.5 g/dL (12.0-16.0); Lymphocyte % 32.4 %; Mean Corpuscular HGB Conc 36 g/dL (31-36); Mean Corpuscular Hemoglobin 31 pg (27-31); Mean Corpuscular Volume 88 fL (80-97); Mean Platelet Volume 10.3 fL (7.4-10.4); Nucleated Red Blood Cells % 0.1; Platelet Count 51 10^3/uL (150-450); Red Blood Count 3.36 10^6 /uL (3.70-4.87); Red Cell Distribution Width 15 % (10-15); White Blood Count 3.1 10^3/uL (3.5-10.8)
[2020-09-27] MEDS: Timolol 0.5% OPTH.SOL BTL BOTH EYES SCH ×2 (09:39→21:44)
[2020-09-27 21:35] LABS: IgG Immunoblot Positive (Negative); IgM Immunoblot Positive (Negative)
[2020-09-28 06:58] LABS: Calcium 7.7 mg/dL (8.6-10.3); EGFR African American 122.9 (>60); EGFR Non-African American 101.5 (>60); Potassium 3.6 mmol/L (3.5-5.0)
[2020-09-28 06:59] LABS: Hematocrit 27 % (35-47); Hemoglobin 9.8 g/dL (12.0-16.0); Mean Corpuscular HGB Conc 36 g/dL (31-36); Mean Corpuscular Hemoglobin 31 pg (27-31); Mean Corpuscular Volume 87 fL (80-97); Mean Platelet Volume 9.8 fL (7.4-10.4); Platelet Count 71 10^3/uL (150-450); Red Blood Count 3.13 10^6 /uL (3.70-4.87); Red Cell Distribution Width 15 % (10-15)
[2020-09-28] MEDS ORDERED: Potassium Chloride LIQUID 20 MEQ/15 ML LIQUID PO ONE (09:00)
[2020-09-28] MEDS: Cholecalciferol (VIT D3) 1,000 unit TAB PO SCH (09:32)
[2020-09-28] MEDS: Timolol 0.5% OPTH.SOL BTL BOTH EYES SCH ×2 (09:33→21:49)
[2020-09-28 12:00] LABS: Anisocytosis 1+; Hypochromasia 1+; Microcytosis 1+; Spherocytes 1+
[2020-09-28 12:01] LABS: ABS Lymphocytes 1.1 10^3/ul (1.0-4.8); ABS Monocytes 0.4 10^3/ul (0-0.8); ABS Neutrophils 1.6 10^3/ul (1.5-7.7); Eosinophil % 0.2 %; Lymphocyte % 34.9 %; Nucleated Red Blood Cells % 0.1
[2020-09-29] MEDS: Timolol 0.5% OPTH.SOL BTL BOTH EYES SCH (09:33)
[2020-09-29] MEDS: Cholecalciferol (VIT D3) 1,000 unit TAB PO SCH (09:33)
[2020-09-29 15:41] VITALS: BP 136/42
[2020-09-29 17:30] LABS: Anaplasma phagocytophilum Positive (Negative); B. miyamotoi PCR, B Negative (Negative); Babesia divergens/MO-1 Negative (Negative); Babesia ducani Negative (Negative); Ehrlichia chaffeensis Negative (Negative); Ehrlichia ewingii/canis Negative (Negative); Ehrlichia muris eauclairensis Negative (Negative)
== END 2020-09-29 16:25 | disposition home or self-care (01) | DRG 867 ==
LOC: MED 10:11 → ED 10:11 → OBSVTOIN 14:31 → MED 21:11 → MEDTELE 09-29 03:05
PROVIDERS: ADMIT Internal Medicine; ATTEND Student in an Organized Health Care Education/Training Program